=== PATIENT | female | born 1995 | race Caucasian/White ===

== ENCOUNTER 2022-01-17 08:08 | Emergency (ER) | payer OTHER, SELFPAY ==
[2022-01-17 08:10] VITALS: BP 108/62; PULSE 67; RESP 16; TEMP 36.4; O2SAT 100
[2022-01-17] MEDS: SODIUM CHLORIDE 0.9% IV 1,000 ML 999 ML IV CONT (08:38)
[2022-01-17] MEDS: ONDANSETRON INJ 4 MG/2 ML VIAL IV PUSH (08:39)
[2022-01-17] MEDS: ALPRAZolam (*CRX) 0.5 MG TABLET PO (08:39)
[2022-01-17 08:43] LABS: Basophils Absolute Auto 0.05 K/mm3 (0.00-0.10); Basophils Percent Auto 0.3 % (0.0-1.0); Eosinophils Absolute Auto 0.07 K/mm3 (0.02-0.50); Eosinophils Percent Auto 0.4 % (1.0-6.0); Hematocrit 50.1 % (35.0-49.0); Hemoglobin 16.1 g/dL (12.0-15.0); Immature Granulocyte Absolute 0.09 K/mm3 (0.00-0.00); Immature Granulocyte Percent A 0.5 % (0.0-0.0); Lymphocytes Absolute Auto 0.82 K/mm3 (1.10-4.50); Lymphocytes Percent Auto 4.3 % (18.0-42.0); Mean Corpuscular HGB Conc 32.1 g/dL (32.0-36.0); Mean Corpuscular Hemoglobin 28.7 pg (27.0-31.0); Mean Corpuscular Volume 89.3 fL (78.0-102.0); Mean Platelet Volume 12.4 fl (9.2-11.8); Monocytes Absolute Auto 0.92 K/mm3 (0.10-0.90); Monocytes Percent Auto 4.8 % (2.0-11.0); Neutrophils Percent Auto 89.7 % (50.0-70.0); Platelet Count Result 244 K/mm3 (150-420); Red Blood Count 5.61 M/mm3 (4.20-5.40)
[2022-01-17 08:54] LABS: Pregnancy On Board Control Positive; Urine Pregnancy Test Negative
[2022-01-17 08:57] LABS: Alanine Aminotransferase 13 U/L (14-59); Albumin Level 4.4 g/dL (3.4-5.0); Alkaline Phosphatase 120 U/L (46-116); Anion Gap 11 mmol/L (8-16); Aspartate Amino Transferase 12 U/L (15-37); Bilirubin,Total 0.9 mg/dL (0.00-1.00); Blood Urea Nitrogen 14 mg/dL (7-18); Calcium 9.2 mg/dL (8.5-10.1); Carbon Dioxide 25 mmol/L (21-32); Chloride 106 mmol/L (98-108); Estimated CRCL calculation 84 ml/min; Estimated Glomerular Filt Rate > 60; Glucose 91 mg/dL (70-99); Osmolality Calculated 294 mOsm/kg (285-295); Potassium 3.6 mmol/L (3.5-5.1); Sodium 142 mmol/L (136-145); Total Protein 8.3 g/dL (6.4-8.2)
--- NOTE | 2022-01-17 09:11 | ED.NAVMDI ---
HPI - Nausea/Vomiting/Diarrhea General Chief complaint: Nausea/Vomiting/Diarrhea Stated complaint: VOMITING Time Seen by Provider: 01/17/22 08:11 Source: patient Mode of arrival: ambulatory Limitations: no limitations History of Present Illness HPI Narrative: this is a 26-year-old female with no significant past medical history presents this morning to the emergency department with some episodes of nausea and vomiting with diarrhea that started at around 2:00 a.m. this morning, patient denies any fevers there is no chest pain or shortness of breath no abdominal pain no flank pain MD elicited complaint: nausea, vomiting and diarrhea Onset (ago): hour(s) Description of vomiting: watery Associated nausea: Yes Associated abdominal pain: No Related Data Allergies Allergy/AdvReac Type Severity Reaction Status Date / Time amoxicillin Allergy Redness of Verified 01/17/22 08:37 Skin Review of Systems Review of Systems: All systems reviewed & are unremarkable except as noted in HPI and below PMFSH Past Medical History Medical History Patient denies medical problems Exam Const: General: healthy appearing and no acute distress Nutritional Appearance: well nourished Limitations: no limitations HENMT: Head: normal to inspection Face/Nose/Sinus: Normal external nose present Mouth: Yes Normal oral and palatal mucosa present Teeth and gingiva: dentition normal Eyes: Conjunctivae: conjunctivae normal Pupils: Equal, round and reactive pupils present EOM: EOMs intact bilaterally Neck: Neck: normal visual inspection, no lymphadenopathy and no meningeal signs Chest: Chest palpation & inspection: normal inspection of the chest Resp: Effort & Inspection: normal respiratory effort Cardio: Rate: regular rate Rhythm: regular rhythm GI: GI Palp: Yes Soft to palpation : General: Yes bladder normal to palpation Urinary Catheter: Urinary Catheter: patent and draining Back/Spine/Pelvis: Back: no CVA tenderness Skin: General skin exam: normal color Rashes: no rashes Wounds: no wounds Neuro: General: patient oriented x3 Cranial nerves: Yes Nystagmus not present Extrem: General: normal to inspection, no clubbing, cyanosis or edema and no pedal edema Psych: Mental Status: mental status grossly normal Course Course Emergency Course: patient received IV Zofran along with IV fluids, Xanax to help with anxiety, labs reviewed with patient as well as UA. Vital Signs Vital signs: Vital Signs Temperature 36.4 C 01/17/22 08:10 Pulse Rate 67 01/17/22 08:10 Respiratory Rate 16 01/17/22 08:10 Blood Pressure 108/62 01/17/22 08:10 Pulse Oximetry 100 01/17/22 08:10 Oxygen Delivery Room Air 01/17/22 08:10 Temperature 36.4 C 01/17/22 08:10 Pulse Rate 67 01/17/22 08:10 Respiratory Rate 16 01/17/22 08:10 Blood Pressure 108/62 01/17/22 08:10 Pulse Oximetry 100 01/17/22 08:10 Oxygen Delivery Room Air 01/17/22 08:10 MDM - Nausea/Vomiting/Diarrhea Lab Data Result diagrams: 01/17/22 08:36 01/17/22 08:36 Labs: Lab Results 01/17/22 01/17/22 01/17/22 Range/Units 08:36 08:36 08:43 WBC 19.0 H (4.8-10.8) K/mm3 RBC 5.61 H (4.20-5.40) M/mm3 Hgb 16.1 H (12.0-15.0) g/dL Hct 50.1 H (35.0-49.0) % MCV 89.3 (78.0-102.0) fL MCH 28.7 (27.0-31.0) pg MCHC 32.1 (32.0-36.0) g/dL RDW 13.0 (11.6-14.4) % Plt Count 244 (150-420) K/mm3 MPV 12.4 H (9.2-11.8) fl Immature Gran % (Auto) 0.5 H (0.0-0.0) % Neut % (Auto) 89.7 H (50.0-70.0) % Lymph % (Auto) 4.3 L (18.0-42.0) % [place] % (Auto) 4.8 (2.0-11.0) % Eos % (Auto) 0.4 L (1.0-6.0) % Baso % (Auto) 0.3 (0.0-1.0) % Lymph # (Auto) 0.82 L (1.10-4.50) K/mm3 [place] # (Auto) 0.92 H (0.10-0.90) K/mm3 Eos # (Auto) 0.07 (0.02-0.50) K/mm3 Baso # (Auto) 0.05 (0.00-0.10) K/mm3
[2022-01-17 09:18] LABS: Add Urine Microscopic? NO; Appearance Urine Clear (Clear); Bilirubin Urine Negative (Negative); Blood Urine Negative (Negative); Color Urine Yellow (Yellow); Glucose Urine UA Negative (Negative); Ketones Urine Negative (Negative); Leukocyte Esterase Ur Negative LEU/UL (Negative); Nitrate Urine Negative (Negative); Protein Urine Negative (Negative); Urobilinogen Urine 0.2 mg/dL (0.2-1.0)
[2022-01-17 09:29] VITALS: BP 108/74; PULSE 78; RESP 20; TEMP 36.9; O2SAT 97
== END 2022-01-17 09:45 | disposition home or self-care (01) ==
PROVIDERS: Emergency Provider Emergency Medicine; PCP Family Medicine
DX: K52.9 Noninfective gastroenteritis and colitis, unspecified (principal)
CPT/HCPCS: 36415; 80053; 81003; 81025; 85025; 96361; 96374; 99284; A9270; J2405; J7030

== ENCOUNTER 2022-02-07 07:37 | Emergency (ER) | payer OTHER, SELFPAY ==
[2022-02-07 08:25] VITALS: BP 98/59; PULSE 87; RESP 20; TEMP 37.1; O2SAT 97
[2022-02-07] MEDS: KETOROLAC (*BKC) 60 MG/2 ML VIAL IM (08:38)
--- NOTE | 2022-02-07 08:47 | ED.GENADULT ---
HPI - General Adult General Chief complaint: Extremity Injury, Lower Stated complaint: HIP AND KNEE PAIN THROWING UP Time Seen by Provider: 02/07/22 07:41 Source: patient Mode of arrival: ambulatory Limitations: no limitations History of Present Illness HPI narrative: this is 26-year-old with no significant past medical history the last 3 to 4 days has been having nausea and vomiting, currently has subsided there is currently no nausea or vomiting, but the patient presents with left hip and lower leg cramping, with no known injury pain level about a 4/10 has tried Tylenol earlier this morning. There is no fever chills no known injuries no chest pain no shortness of breath no abdominal pain no flank pain no dysuria. Onset (ago): day(s) Location: lower extremity Radiation: non-radiation Severity: mild Severity scale (1-10): 4 Quality: aching Pain Consistency: constant Relieving factors: none Exacerbating factors: none Associated symptoms: denies other symptoms Related Data Allergies Allergy/AdvReac Type Severity Reaction Status Date / Time amoxicillin Allergy Redness of Verified 02/07/22 08:42 Skin Penicillins Allergy Hives Verified 02/07/22 08:42 Review of Systems Review of Systems: All systems reviewed & are unremarkable except as noted in HPI and below PMFSH Past Medical History Medical History Patient denies medical problems Exam Const: General: healthy appearing Nutritional Appearance: well nourished Orientation/consciousness: patient oriented x3 Limitations: no limitations HENMT: Head: normal to inspection Face and sinus: normal facial exam Mouth: Yes Normal oral and palatal mucosa present Eyes: Conjunctivae: conjunctivae normal Pupils: Equal, round and reactive pupils present EOM: EOMs intact bilaterally Neck: Neck: normal visual inspection Chest: Chest palpation & inspection: normal inspection of the chest Resp: Effort & Inspection: normal respiratory effort Auscultation: clear to auscultation bilaterally Cardio: Rate: regular rate Rhythm: regular rhythm GI: GI Palp: Yes Soft to palpation Auscultation: normal bowel sounds : General: Yes bladder normal to palpation Skin: General skin exam: normal color Rashes: no rashes Neuro: General: patient oriented x3 Cranial nerves: Yes Nystagmus not present Speech: normal speech Extrem: General: normal to inspection, no clubbing, cyanosis or edema and no pedal edema Psych: Mental Status: mental status grossly normal Affect: normal affect Course Course Emergency Course: Patient received IM Toradol and a reassessment of discomfort has improved, reviewed her potassium, CMP and magnesium levels. Medical Decision Making Lab Data 02/07/22 08:39 Labs: Lab Results 02/07/22 Range/Units 08:39 Sodium Pending Potassium Pending Chloride Pending Carbon Dioxide Pending Anion Gap Pending BUN Pending Creatinine Pending Estim Creat Clear Calc Pending Estimated GFR Pending Glucose Pending Calculated Osmolality Pending Calcium Pending Magnesium Pending Total Bilirubin Pending AST Pending ALT Pending Alkaline Phosphatase Pending Total Protein Pending Albumin Pending Critical Care Time Critical Care Time Critical Care Time: No Discharge Plan Discharge Clinical Impression: Cramp in lower leg, Acute hypokalemia Patient Disposition: Home, Self-Care Condition: Stable Instructions: Antibiotic Form, Hypokalemia (ED), Muscle Cramp (ED) Additional Instructions: take medicine as prescribed and follow-up primary care physician if symptoms persist or worsen. Prescriptions: New potassium chloride 10 mEq tablet extended release 10 meq PO BID 3 Days Qty: 6 0RF Follow-up/Referrals: Dima Burns M.D. [Primary Care Provider] - Time of Disposition: 09:15
[2022-02-07 09:01] LABS: Alanine Aminotransferase 9 U/L (14-59); Alkaline Phosphatase 87 U/L (46-116); Anion Gap 8 mmol/L (8-16); Aspartate Amino Transferase 15 U/L (15-37); Bilirubin,Total 0.4 mg/dL (0.00-1.00); Blood Urea Nitrogen 8 mg/dL (7-18); Calcium 8.7 mg/dL (8.5-10.1); Carbon Dioxide 29 mmol/L (21-32); Chloride 104 mmol/L (98-108); Estimated Glomerular Filt Rate > 60; Glucose 90 mg/dL (70-99); Magnesium 1.8 mg/dL (1.8-2.4); Osmolality Calculated 290 mOsm/kg (285-295); Potassium 3.2 mmol/L (3.5-5.1); Sodium 141 mmol/L (136-145); Total Protein 7.7 g/dL (6.4-8.2)
[2022-02-07] MEDS: POTASSIUM BICARBONATE 25 MEQ TABEF 50 MEQ PO (09:23)
[2022-02-07 09:45] VITALS: BP 102/61; PULSE 85; RESP 20; TEMP 36.8; O2SAT 98
== END 2022-02-07 09:47 | disposition home or self-care (01) ==
PROVIDERS: Emergency Provider Emergency Medicine; PCP Family Medicine
DX: R25.2 Cramp and spasm (principal); E87.6 Hypokalemia
CPT/HCPCS: 36415; 80053; 83735; 96372; 99283; A9270; J1885

== ENCOUNTER 2022-02-12 06:11 | Emergency (ER) | payer OTHER, SELFPAY ==
--- NOTE | ~2022-02-12 | CT_ITS ---
EXAMINATION: CT abdomen pelvis wo con DATE: 02/12/2022 08:51 INDICATION: Abdominal pain, cramping, vomiting. TECHNIQUE: Computed tomography (CT) of the abdomen and pelvis was performed without intravenous contr ast. Automated exposure control and iterative reconstruction technique were employed. Exam dose: 607 .80 mGy-cm total exam DLP. COMPARISON: None. FINDINGS: The lung bases are clear. Normal heart size. No pericardial or pleural effusion. Status post cholecystectomy. No hepatic, splenic, pancreatic, adrenal or renal space-occupying mass l esion is evident. Uterus, adnexal areas and urinary bladder are unremarkable. Normal caliber of the abdominal aorta. No intraperitoneal or retroperitoneal or pelvic mass lesion or adenopathy or ascites. Normal appendix. No bowel obstruction, bowel wall thickening, pneumatosis or intraperitoneal free air . Very small fat-containing umbilical hernia. Included skeletal structures are unremarkable. IMPRESSION: Normal appendix. No bowel obstruction or free air Status post cholecystectomy Reviewed, dictated and finalized at [facility]. Reviewed, dictated and finalized at [facility]. [facility]
[2022-02-12 06:20] VITALS: BP 107/61; PULSE 60; RESP 18; TEMP 36.2; O2SAT 97
--- NOTE | 2022-02-12 06:20 | ED.URI ---
HPI - URI/Sore Throat General Chief Complaint: Upper Respiratory Infection <Andrez Dolan MD - Last Filed: 02/13/22 06:59> Stated Complaint: Flu lik symptoms/low potassium/Vomiting <MD Arsh Landin Last Filed: 02/13/22 06:59> Time Seen by Provider: 02/12/22 06:20 <Andrez Dolan MD - Last Filed: 02/13/22 06:59> Source: patient and RN notes reviewed <Andrez Dolan MD - Last Filed: 02/13/22 06:59> Mode of arrival: ambulatory <MD Arsh Landin Last Filed: 02/13/22 06:59> Limitations: no limitations <Andrez Dolan MD - Last Filed: 02/13/22 06:59> History of Present Illness HPI Narrative: Patient had an illness 5 days ago was seen here in the emergency room found to have low potassium levels. She started to get better but then yesterday began having chills nausea cough headache and body aches. It continues today. She knows that some people at work were positive for flu last week. <Andrez Dolan MD - Last Filed: 02/13/22 06:59> MD elicited complaint: cough <Andrez Dolan MD - Last Filed: 02/13/22 06:59> Onset (ago): day(s) (1) <Andrez Dolan MD - Last Filed: 02/13/22 06:59> Consistency: constant <MD Arsh Landin Last Filed: 02/13/22 06:59> Severity: moderate <Andrez Dolan MD - Last Filed: 02/13/22 06:59> Description of mucous: clear <MD Arsh Landin Last Filed: 02/13/22 06:59> Able to tolerate fluids by mouth: Yes <MD Arsh Landin Last Filed: 02/13/22 06:59> Exacerbating factors: other (coughing) <MD Arsh Landin Last Filed: 02/13/22 06:59> Relieving factors: nothing <MD Arsh Landin Last Filed: 02/13/22 06:59> Context: sick contacts <Andrez Dolan MD - Last Filed: 02/13/22 06:59> Associated symptoms: chills, myalgias, headache, cough, nausea and vomiting <Andrez Dolan MD - Last Filed: 02/13/22 06:59> Treatments prior to arrival: none <Andrez Dolan MD - Last Filed: 02/13/22 06:59> Related Data Allergies/Adverse Reactions: Allergies Allergy/AdvReac Type Severity Reaction Status Date / Time amoxicillin Allergy Redness of Verified 02/07/22 08:42 Skin Penicillins Allergy Hives Verified 02/07/22 08:42 <Andrez Dolan MD - Last Filed: 02/13/22 06:59> Review of Systems Review of Systems: All systems reviewed & are unremarkable except as noted in HPI and below <Andrez Dolan MD - Last Filed: 02/13/22 06:59> PMFSH Past Medical History Medical History: Medical History (Updated 02/13/22 @ 00:00 by Emily Palumbo) Patient denies medical problems <Andrez Dolan MD - Last Filed: 02/13/22 06:59> Surgical History Surgical History: Surgical History (Updated 02/12/22 @ 06:29 by Andrez Dolan MD) History of section Hx of cholecystectomy <Andrez Dolan MD - Last Filed: 02/13/22 06:59> Social History Social History: Social History (Updated 02/12/22 @ 06:29 by Andrez Dolan MD) Smoking status: Never smoker <Andrez Dolan MD - Last Filed: 02/13/22 06:59> Exam Const: General: no acute distress, alert and ill appearing acutely <Andrez Dolan MD - Last Filed: 02/13/22 06:59> Nutritional Appearance: well nourished <Andrez Dolan MD - Last Filed: 02/13/22 06:59> Orientation/consciousness: patient oriented x3 <Andrez Dolan MD - Last Filed: 02/13/22 06:59> Limitations: no limitations <Andrez Dolan MD - Last Filed: 02/13/22 06:59> HENMT: Head: normal to inspection <Andrez Dolan MD - Last Filed: 02/13/22 06:59> Ears: external ears normal <Andrez Dolan MD - Last Filed: 02/13/22 06:59> Face and sinus: normal facial exam <Andrez Dolan MD - Last Filed: 02/13/22 06:59> Eyes: Conjunctivae: conjunctivae normal <Andrez Doaln MD - Last Filed: 02/13/22 06:59> Pupils: Equal, round and reactive pupils present <Andrez Dolan MD - Last Filed: 02/13/22 06:59> EOM: EOMs intact derek
[2022-02-12 06:29] VITALS: O2SAT 97
[2022-02-12 06:51] VITALS: BP 113/67; PULSE 60; RESP 18; O2SAT 100
--- NOTE | 2022-02-12 06:59 | PC.NURSE ---
Pt resting c warm blanket, has ice chips, awaiting test results. Report to Romaine Rivers
[2022-02-12 07:07] LABS: Influenza A QL RT-PCR Negative (Negative); Influenza B QL RT-PCR Negative (Negative); SARS-CoV-2 RNA PCR Positive (Negative)
--- NOTE | 2022-02-12 07:22 | PC.NURSE ---
erp at bedside. nad noted. report from kt [facility]. will continue to monitor.
[2022-02-12 07:27] VITALS: BP 113/76; PULSE 56; RESP 16; O2SAT 98
[2022-02-12] MEDS: ONDANSETRON INJ 4 MG/2 ML VIAL IV PUSH (07:49)
[2022-02-12] MEDS: PANTOPRAZOLE SODIUM IV 40 MG VIAL IV PUSH (07:50)
[2022-02-12] MEDS: SODIUM CHLORIDE 0.9% IV 500 ML 999 ML IV CONT (07:50)
[2022-02-12] MEDS: ACETAMINOPHEN 325 MG TABLET 650 MG PO (07:51)
--- NOTE | 2022-02-12 07:54 | PC.NURSE ---
PT IS SITTING UP ON STRETCHER WITH IVF INFUSING ORDERED WITHOUT DIFFICULTY, TEXTING ON CELL WITHOUT DISTRESS NOTED. PT IS AWAITING LAB RESULTS PRIOR TO CT. WILL CONTINUE TO MONITOR.
[2022-02-12 07:59] LABS: Basophils Absolute Auto 0.01 K/mm3 (0.00-0.10); Basophils Percent Auto 0.1 % (0.0-1.0); Eosinophils Absolute Auto 0.05 K/mm3 (0.02-0.50); Eosinophils Percent Auto 0.6 % (1.0-6.0); Hematocrit 43.8 % (35.0-49.0); Hemoglobin 14.4 g/dL (12.0-15.0); Immature Granulocyte Absolute 0.03 K/mm3 (0.00-0.00); Immature Granulocyte Percent A 0.4 % (0.0-0.0); Lymphocytes Absolute Auto 1.55 K/mm3 (1.10-4.50); Lymphocytes Percent Auto 19.4 % (18.0-42.0); Mean Corpuscular HGB Conc 32.9 g/dL (32.0-36.0); Mean Corpuscular Hemoglobin 28.9 pg (27.0-31.0); Mean Corpuscular Volume 87.8 fL (78.0-102.0); Mean Platelet Volume 12.5 fl (9.2-11.8); Monocytes Absolute Auto 0.39 K/mm3 (0.10-0.90); Monocytes Percent Auto 4.9 % (2.0-11.0); Neutrophils Absolute Auto 5.9 K/mm3 (1.7-7.2); Neutrophils Percent Auto 74.6 % (50.0-70.0); Platelet Count Result 156 K/mm3 (150-420); Red Blood Count 4.99 M/mm3 (4.20-5.40)
[2022-02-12 08:18] LABS: Alanine Aminotransferase 21 U/L (14-59); Albumin Level 3.8 g/dL (3.4-5.0); Alkaline Phosphatase 90 U/L (46-116); Anion Gap 9 mmol/L (8-16); Aspartate Amino Transferase 16 U/L (15-37); Bilirubin,Total 0.3 mg/dL (0.00-1.00); Blood Urea Nitrogen 12 mg/dL (7-18); Calcium 8.7 mg/dL (8.5-10.1); Carbon Dioxide 26 mmol/L (21-32); Chloride 109 mmol/L (98-108); Estimated CRCL calculation 91 ml/min; Estimated Glomerular Filt Rate > 60; Glucose 96 mg/dL (70-99); Lipase 109 U/L (73-393); Osmolality Calculated 297 mOsm/kg (285-295); Potassium 3.8 mmol/L (3.5-5.1); Sodium 144 mmol/L (136-145); Total Protein 7.6 g/dL (6.4-8.2)
[2022-02-12 08:39] LABS: SPREG INTERNAL CONTROL Positive; Serum Qual hCG Negative
--- NOTE | 2022-02-12 08:46 | PC.NURSE ---
PT IS IN CT AT THIS TIME
[2022-02-12 09:50] VITALS: BP 112/63; PULSE 56; RESP 14; TEMP 36.7; O2SAT 98
--- NOTE | 2022-02-12 09:51 | PC.NURSE ---
pt is resting on stretcher in exam room at this time. denies needs or complaints. pt is awaiting erp decision. will continue to monitor.
== END 2022-02-12 10:05 | disposition home or self-care (01) ==
PROVIDERS: Emergency Medicine; Emergency Provider Emergency Medicine; PCP Family Medicine
DX: U07.1 COVID-19 (principal); J06.9 Acute upper respiratory infection, unspecified
CPT/HCPCS: 36415; 74176; 80053; 83605; 83690; 84703; 85025; 87502; 96374; 96375; 99284; A9270; C9113; J2405; J7040; U0003; U0005